=== PATIENT | female | born 1965 | race African-American/Black ===

== ENCOUNTER 2020-09-11 13:13 | Emergency (ER) | payer BC, OTHER ==
[~2020-09-11] VITALS: Ht 167.6 cm; Wt 83.5 kg
[2020-09-11 13:18] VITALS: BP 148/91
== END 2020-09-11 15:13 | disposition home or self-care (01) ==
LOC: ER 13:13
DX: U07.1 COVID-19 (principal); Z88.8 Allergy status to other drugs, medicaments and biological substances